=== PATIENT | female | born 1955 | race Caucasian/White ===

== ENCOUNTER 2022-11-16 07:47 | Outpatient (CLI) | payer MEDICARE, SELFPAY | END 2022-11-16 07:48 | disposition home or self-care (01) | LOC: NFLDREF 11-17 14:29 | PROVIDERS: PCP Internal Medicine; Referring Provider Internal Medicine; Visit Provider Internal Medicine | DX: M81.0 Age-related osteoporosis without current pathological fracture (principal); E78.5 Hyperlipidemia, unspecified | CPT/HCPCS: 80061; 82306 ==

== ENCOUNTER 2023-02-16 09:54 | Outpatient (CLI) | payer MEDICARE, SELFPAY ==
--- NOTE | 2023-02-16 10:15 | CRLHL7_ITS ---
For Patients: As a result of the Century Cures Act, medical imaging exams and procedure reports are released immediately into your electronic medical record. You may view this report before your referring provider. If you have questions, please contact your health care provider. BILATERAL SCREENING MAMMOGRAM WITH COMPUTER-AIDED DETECTION TECHNIQUE: CC and MLO views were obtained. These mammographic images have been obtained using full-field digital technique. These mammographic images were interpreted with the benefit of computer-aided detection. COMPARISON FILM: 01/06/21, 03/19/19, 12/24/17. FINDINGS: The breasts are heterogeneously dense, which may obscure small masses IMPRESSION: There is no radiographic evidence for malignancy. ASSESSMENT: BI-RADS Category 1: Negative RECOMMENDATION: Routine screening mammogram in 1 year. A lay language report of this examination will be provided to the patient. Adair Bai M.D. Diagnostic Radiologist [email or web address] MOO/Dictated by: Adair Bai MD @ 02/16/2023 12:29:00 PM (Electronically Signed)
== END 2023-02-16 09:55 | disposition home or self-care (01) ==
LOC: MAMMO 09:55
PROVIDERS: PCP Internal Medicine; Visit Provider Internal Medicine
DX: Z12.31 Encounter for screening mammogram for malignant neoplasm of breast (principal); R92.2 Inconclusive mammogram
CPT/HCPCS: 77067

== ENCOUNTER 2023-02-19 07:41 | Outpatient (CLI) | payer MEDICARE, SELFPAY | END 2023-02-19 07:42 | disposition home or self-care (01) | LOC: NFLDREF 02-21 11:12 | PROVIDERS: PCP Internal Medicine; Referring Provider Internal Medicine; Visit Provider Internal Medicine | DX: E78.5 Hyperlipidemia, unspecified (principal) | CPT/HCPCS: 80061 ==

== ENCOUNTER 2023-11-23 09:30 | Outpatient (CLI) | payer MEDICARE, BC, SELFPAY ==
--- OUTSIDE RECORDS SUMMARY | 2023-11-27 14:12 | XMS_ITS | Encounter Summary ---
Author Organization [facility] Address [address], [place] [address] Care Team Providers Care Steam Station Supervisor Name Role Phone Needs Pcp, Assignment Primary Care Provider [phone] Encounter Details Date Type Department Care Team (Late Contact Info) Description 08/27/2023 Notes/Orders [facility] [facility] [address] [facility]. [place], [place] [id number] Needs Pcp, [place], [place] [phone] Social History Tobacco Use Types Packs/Day Years Used Date Smoking Tobacco: Never Smokeless Tobacco: Never Alcohol Use Standard Drinks/Week Comments Never 0 (1 standard drink = 0.6 oz pur e alcohol) AUDIT-C Answer Date Recorded Q1: How often do you have a drink containing alc ohol? Never 02/02/2020 Average Number of Drinks Not on file 020 Frequency of Binge Drinking Not on file 01/04 Sex and Gender Information Value Date Recorded Sex Assigned at Not on file Gender Identity Not on file Sexual Orientation Not on file documented as of this encounter Plan of Treatment Upcoming Encounters Date Type Department Care Team (Late Contact Info) Description 01/10/2024 10:00 AM CDT Appointment [facility] Dental [facility] [address] [place] [address] Carine Canela, [facility] [address] [place] [address] documented as of this encounter Visit Diagnoses Not on filedocumented in this encounter Care Teams Steam Station Supervisor Relationship Specialty Start Date End Date Needs Pcp, [place], [place] [id number] PCP - General 07/28/21 documented as of this encounter
--- OUTSIDE RECORDS SUMMARY | 2023-11-27 14:12 | XMS_ITS | Clinical Summary ---
Author Organization [facility] Address [place], [place] [address] Care Team Providers Care Illuminator Name Role Phone Pcp, No Primary Care Provider Unavailabl e Allergies No known active allergies Medications Medication Sig Dispensed Refills Start Date End Date Status calcium 600 mg capsule Take 1 capsule by mouth 2 times daily with meals. 0 09/27/2010 Active fluticasone, 50 mcg per actuation, nasal (FLONASE) 50 mcg/Actuation nasal spray Inhale 1 [place] into both nostrils once daily. 1 Bottle 0 09/27/2010 Active alendronate (FOSAMAX) 70 mg tablet 02/06/2019 Active Active Problems No known active problems Encounters Date Type Department Care Team Description 11/26/2023 1:00 PM CDT Office Visit [facility] [address] [place] [address] Say Berrios, WOLFGANG Eye Exam (CEE ) 11/26/2023 Travel from Last 3 Months Immunizations Name Administration Dates Next Due AMB Influenza, IIV4 PF (=>6 mos Flulaval,Fluzone Fluarix)(Flu Clinic Only) 03/12/2015 Influenza, IIV4 03/17/2016 Social History Tobacco Use Types Packs/Day Years Used Date Smoking Tobacco: Never Smokeless Tobacco: Never Sex and Gender Information Value Date Recorded Sex Assigned at Not on file Gender Identity Not on file Sexual Orientation Not on file Obstetrics History Last Filed Vital Signs Vital Sign Reading Time Taken Comments Blood Pressure 143/74 05/17/2016 1:51 PM MILK AND CREAM GRADER Pulse 91 04/26/2016 3:15 PM MILK AND CREAM GRADER Temperature - - Respiratory Rate - - Oxygen Saturation - - Inhaled Oxygen Concentration - - Weight - - Height - - Body Mass Index - - Plan of Treatment Health Maintenance Due Date Last Done Comments Tdap 1964 Depression screening for age 12+ 1965 BMI (ht and wt on same day) for age 18+ 12/13/1971 Hepatitis C screening for ag e 18-79 12/13/1971 Tetanus booster 1973 Colonoscopy through age 75 1998 Lipids for age 45-75 1998 Mammogram for age 45-75 1998 Zoster (shingles) series for age 50+ (1 of 2) 12/13/2003 DEXA/DXA scan for age 65+ 2018 Medicare Wellness for age 65+ 2018 Pneumococcal series for age 65+ (1 of 1 - PCV) 2018 COVID-19 vaccine series (2022- season) 2023 03/01/2023, 03/04/2021, 08/20/2020, Additional history exists Influenza for age 65+ 02/03/2024 03/17/2016, 015 Care Teams Illuminator Relationship Specialty Start Date End Date Pcp, No . PCP - General 12/24/14
--- OUTSIDE RECORDS SUMMARY | 2023-11-27 14:12 | XMS_ITS | Clinical Summary ---
Author Organization [facility] Address [address], [place] [address] Care Team Providers Care Associate Professor Of Surgery Name Role Phone Needs Pcp, Assignment Primary Care Provider [phone] Source Comments You are receiving this document as you are listed as the primary care provider,follow-up provider, or the patient has been referred to you for consultation.This is in compliance with the Medicare and[facility] EHR Incentive Program,which states Providers who transition their patient to another setting of careor provider of care or refers their patient to another provider of care shouldprovide summary care record for each transition of care or referral. [facility] Allergies No known active allergies Medications Medication Sig Dispensed Refills Start Date End Date Status fluticasone (FLONASE) 50 MCG/ACT nasal solution Place 2 Sprays into both nostrils daily. Active alendronate (FOSAMAX) 35 MG tablet 06/03/2018 Active Loratadine 10 MG capsule 11/03/2019 Active simvastatin (ZOCOR) 10 MG tablet Take 1 Tablet (10 mg) by mouth daily at bedtime. 02/26/2023 Active alendronate (FOSAMAX) 70 MG tablet 01/13/2021 Active Active Problems No known active problems Encounters Date Type Department Care Team Description 08/27/2023 Notes/Orders [facility] [address] Family [address] [place], [place] [phone] Needs Pcp, Assignment from Last 3 Months Immunizations Name Administration Dates Next Due Influenza IIV4 (Quadrivalent) Fluad, 65+ Yrs ,03/19/2020 Social History Tobacco Use Types Packs/Day Years [...] on file Sexual Orientation Not on file Last Filed Vital Signs Vital Sign Reading Time Taken Comments Blood Pressure 125/78 06/10/2018 9:31 AM DENTAL LABORATORY TECHNICIAN Pulse 80 03/22/2023 1:10 PM CDT Temperature - - Respiratory Rate - - Oxygen Saturation - - Inhaled Oxygen Concentration - - Weight - - Height - - Body Mass Index - - Plan of Treatment Upcoming Encounters Date Type Department Care Team (Late st Contact Info) Description 01/10/2024 10:00 AM CDT Appointment [facility] [place] [address] [place] [address] [facility] [address] [place] [address] Health Maintenance Due Date Last Done Comments Colon Cancer Screening Plan Due 1955 Hep C Screening (Preventive Services) 1955 Medicare Annual Wellness Visit 1955 Mammogram 1955 Cholesterol 1998 Dexa 2018 DTaP/Tdap/Td (1 - Tdap) 12/10/2020 12/09/2020 COVID-19 Vaccine ( season) 2023 03/04/2021, 08/20/2020, 07/30/2020 Influenza (Season Ended) 2024 021, 03/19/2020, 03/19/2019, Additional history exists Pneumococcal 65+ Yrs (3 - PPSV23 or PCV20) 02/07/2024 02/06/2019, 02/13/2018, 02/06/2018 Zoster/Shingles Completed 02/13/2018, 12/13/2017 HepA Aged Out No longer eligi ble based on patient's age to complete this topic HepB Aged Out No longer eligi ble based on patient's age to complete this topic Hib Aged Out No longer eligi ble based on patient's age to complete this topic IPV (Polio) Aged Out No longer eligi ble based on patient's age to complete this topic MCV4 Aged Out No longer eligi ble based on patient's age to complete this topic Care Teams Associate Professor Of Surgery Relationship Specialty Start Date End Date Needs Pcp, [place] [address] PCP - General 07/28/21
== END 2023-11-23 09:31 | disposition home or self-care (01) ==
LOC: NFLDREF 11-27 14:10
PROVIDERS: PCP Internal Medicine; Visit Provider Internal Medicine
DX: E78.5 Hyperlipidemia, unspecified (principal); M81.0 Age-related osteoporosis without current pathological fracture; Z13.1 Encounter for screening for diabetes mellitus
CPT/HCPCS: 80061; 82306; 82947

== ENCOUNTER 2024-02-27 12:41 | Outpatient (CLI) | payer MEDICARE, BC, SELFPAY ==
--- OUTSIDE RECORDS SUMMARY | 2024-02-27 12:44 | XMS_ITS | Encounter Summary ---
Author Organization [facility] Address [address], [place] [address] Care Team Providers Care Vegetable Scullion Name Role Phone Needs Pcp, Assignment Primary Care Provider [phone] Reason for Visit * Reason Comments Dental Hygiene No concerns Encounter Details Date Type Department Care Team (Late st Contact Info) Description 01/10/2024 10:00 AM CDT Office Visit [facility] [place] [address] [place], [place] [phone] Carine Canela, [facility] [address] [place] [id number] Dental Hygiene (No concerns) Social History Tobacco Use Types Packs/Day Years [...] on file documented as of this encounter Last Filed Vital Signs Vital Sign Reading Time Taken Comments Blood Pressure - - Pulse 73 01/10/2024 10:02 AM CDT Temperature - - Respiratory Rate - - Oxygen Saturation - - Inhaled Oxygen Concentration - - Weight - - Height - - Body Mass Index - - documented in this encounter Patient Instructions * Patient Instructions* Carine Canela RDH - 01/10/2024 10:00 AM CDT Your next hygiene recall is due 07/08/2024 YOUR PERSONAL DENTAL RISK REPORT CARIES (TOOTH DECAY) PERIODONTAL (GUM) DISEASE ORAL CANCER LOW mod high low MOD high LOW elevated ^ ^ ^ Risk Level LOW How To Maintain Your Low Risk Instruction from dental professional on brushing, flossing, and use of oral hygiene products. Radiographs to detect decay. Congratulations on your low risk for tooth decay. Making healthy life style choices including brushing twice a day; daily flossing; and healthy dietary choices should help you maintain this low risk.Risk Level MODERATE Risk Factors Intermediate levels of plaque present. How To Reduce Your Risk Return visit with the dental hygienist at 6 month intervals to assess periodontal condition and provide necessary treatment. Risk Level LOW Risk Factors Incidence of oral cancer increases with age. How To Maintain Your Low Risk Congratulations on your low risk for oral cancer. Making healthy life style choices such as not using tobacco and low to moderate alcohol use should help you maintain this low risk. Rue, we look forward to seeing you at your next visit! Thank you for choosing [facility]. documented in this encounter Progress Notes * Carine Canela RDH - 01/10/2024 10:00 AM CDT HYGIENE PROPHY NOTE COLLABORATIVE AGREEMENT: The patient consents to have charting, radiographs, and prophylaxis by [facility] performed with the understanding that this care is not a substitute for an examination by a dentist. These activities were performed under a collaborating agreement with Shawn Ortiz DDS (License #: [id number]) PROCEDURAL PAUSE: Patient identity verified: Yes Treatment plan/site verified with the patient: Yes Instruments/equipment verified: Yes Any medication/allergy contraindications: No PRESENTATION: Plaque: Localized, Light supra-gingival and interproximal Calculus: Localized, Moderate supra-gingival , sub-gingival, interproximal, mandibular anterior, and posterior buccal Stain: None Bleeding: Localized Light Gingival tissue: Normal ACTIVITIES/EDUCATION: Hand scale, Essential selective polishing, Flossed all contacts, and OHI NEXT PLANNED HYGIENE VISIT: Hygiene Prophy with exam 6 month 5 units. Carine Canela RDH 01/10/2024, 10:00 AM --End of Note-- * Varinder Martinez DDS - 01/10/2024 10:00 AM CDT RECALL EXAM NOTE REASON FOR VISIT/CHIEF COMPLAINT: Nadira is a 68 y.o. female who presents for Dental Hygiene CHART REVIEW: Reviewed with patient: Medical history, Dental history, Problem list, Periodontal charting, and Radiographs. SOFT TISSUE, HEAD AND NECK EXAMINATION: Lips: normal Tongue: normal Palate: normal Throat: normal Floor of the mouth: normal Mucosa: normal Head and neck: normal TMD EVALUATION: Palpation Pain: None Joint Sounds: None Pain with Range of Motion: None OCCLUSAL EXAMINATION: Unchanged COSMETIC CONCERNS: Patient's Perception: Acceptable Dentist's Perception: Acceptable TREATMENT REVIEW AND FOLLOW-UP: Discussed the Dental findings, Prognosis, and Treatment options with the patient. All questions answered and informed consent was obtained. Planned Recall Interval: Examination: 6 months Recall prophy: 6 months NTI, AQA. Next Planned Visit: Recall Varinder Martinez DDS 01/10/2024, 10:35 AM --End of Note-- documented in this encounter Plan of Treatment Upcoming Encounters Date Type Department Care Team (Late st Contact Info) Description 09/01/2024 8:10 AM CDT Appointment [facility] [address] [address] Yoly Lucero RDH [address] [place] [address] Scheduled Orders Name Type Priority Associated Diagnoses Order Schedule PROPHYLAXIS-ADULT RECALL Dental Procedures Routine 1 Occurrences starting 01/10/2024 PERIODIC ORAL EVALUATION Dental Procedures Routine 1 Occurrences starting 01/10/2024 [id number] Dental Procedures Routine 1 Occurrences starting 01/10/2024 TOPICAL FLUORIDE VARNISH Dental Procedures Routine 1 Occurrences starting 01/10/2024 documented as of this encounter Procedures Procedure Name Priority Date/Time Associated Diagnosis Comments [id number] Routine 01/10/2024 10 :00 AM CDT Routine health maintenance PERIODIC ORAL EVALUATION Routine 01/10/2024 10:00 AM CDT Routine health maintenance PROPHYLAXIS-ADULT RECALL Routine 01/10/2024 10:00 AM CDT Routine health maintenance documented in this encounter Visit Diagnoses Diagnosis Incomplete fracture of tooth- Primary Routine health maintenance Routine general medical examination at a health care facility documented in this encounter Care Teams Vegetable Scullion Relationship Specialty Start Date End Date Needs Pcp, [place] [address] PCP - General 07/28/21 documented as of this encounter
--- OUTSIDE RECORDS SUMMARY | 2024-02-27 12:44 | XMS_ITS | Clinical Summary ---
Author Organization [facility] Address [address] [place] [address] Care Team Providers Care Box Car Washer Name Role Phone Needs Pcp, Assignment Primary Care Provider [phone] Source Comments You are receiving this document as you are listed as the primary care provider,follow-up provider, or the patient has been referred to you for consultation.This is in compliance with the Medicare and[facility] EHR Incentive Program,which states Providers who transition their patient to another setting of careor provider of care or refers their patient to another provider of care shouldprovide summary care record for each transition of care or referral. [facility] Allergies No known active allergies Medications Medication [...] 70 MG tablet 01/13/2021 Active Active Problems Problem Noted Date Diagnosed Date High cholesterol 11/16/2022 Osteoporosis 12/24/2017 Encounters Date Type Department Care Team Description 01/10/2024 10:00 AM CDT Office Visit [facility] [place] [address] [place] [address] Carine Canela, [facility] Dental Hygiene (No concerns) from Last 3 Months Immunizations Name Administration [...] Comments Blood Pressure 125/78 06/10/2018 9:31 AM FRONT WORKER Pulse 73 01/10/2024 10:02 AM CDT Temperature - - Respiratory Rate - - Oxygen Saturation - - Inhaled Oxygen Concentration - - Weight - - Height - - Body Mass Index - - Plan of Treatment Upcoming Encounters Date Type Department Care Team (Late st Contact Info) Description 09/01/2024 8:10 AM CDT Appointment [facility] [place] [address] [place] [address] Yoly Lucero, [facility] [address] [phone] Health Maintenance Due Date Last Done Comments Colon Cancer Screening Plan Due 1955 Hep C Screening (Preventive Services) 1955 Medicare Annual Wellness Visit 1955 Mammogram 1955 Cholesterol 1998 Dexa 2018 DTaP/Tdap/Td (1 - Tdap) 12/10/2020 12/09/2020 COVID-19 Vaccine ( season) 2024 03/04/2021, 08/20/2020, 07/30/2020 Influenza (#1) 2024 03/18/2021, 03/04, 03/19/2019, Additional history exists Pneumococcal 65+ Yrs (3 - PPSV23 or PCV20) 02/07/2024 02/06/2019, 02/13/2018, 02/06/2018 RSV (1 - 1-dose 75+ series) 2028 Zoster/Shingles Completed 02/13/2018, 12/13/2017 HepA Aged Out [...] on patient's age to complete this topic Procedures Procedure Name Priority Date/Time Associated Diagnosis Comments [id number] Routine 01/10/2024 10 :00 AM CDT Routine health maintenance PERIODIC ORAL EVALUATION Routine 01/10/2024 10:00 AM CDT Routine health maintenance PROPHYLAXIS-ADULT RECALL Routine 01/10/2024 10:00 AM CDT Routine health maintenance from Last 3 Months Care Teams Box Car Washer Relationship Specialty Start Date End Date Needs Pcp, [place] [address] PCP - General 07/28/21
--- OUTSIDE RECORDS SUMMARY | 2024-02-27 12:44 | XMS_ITS | Clinical Summary ---
Author Organization [facility] Address [place], [place] [address] Care Team Providers Care Wired Music Operator Name Role Phone Pcp, No Primary Care Provider Unavailabl e Allergies No known active allergies Medications Medication Sig Dispensed Refills Start Date End Date Status calcium 600 mg capsule Take 1 capsule by mouth 2 times daily with meals. 0 09/27/2010 Active fluticasone, 50 mcg per actuation, nasal (FLONASE) 50 mcg/Actuation nasal spray Inhale 1 [place] into both nostrils once daily. 1 Bottle 0 09/27/2010 Active alendronate (FOSAMAX) 70 mg tablet 02/06/2019 Active Active Problems No known active problems Immunizations Name Administration Dates Next Due AMB [...] Comments Blood Pressure 143/74 05/17/2016 1:51 PM RECEPTIONIST DOCTOR'S OFFICE Pulse 91 04/26/2016 3:15 PM RECEPTIONIST DOCTOR'S OFFICE Temperature - - Respiratory Rate - - [...] 1 - PCV) 2018 COVID-19 vaccine series (5 - 2022-24 season) 2024 03/01/2023, 03/04/2021, 08/20/2020, Additional history exists Influenza for age 65+ 02/03/2024 03/17/2016, 015 Care Teams Wired Music Operator Relationship Specialty Start Date End Date Pcp, No . PCP - General 12/24/14
--- NOTE | 2024-02-27 13:00 | CRLHL7_ITS ---
For Patients: As a result of the Century Cures Act, medical imaging exams and procedure reports are released immediately into your electronic medical record. You may view this report before your referring provider. If you have questions, please contact your health care provider. BILATERAL SCREENING MAMMOGRAM WITH COMPUTER-AIDED DETECTION AND TOMOSYNTHESIS TECHNIQUE: CC and MLO views were obtained. These mammographic images have been obtained using full-field digital technique. These mammographic images were interpreted with the benefit of computer-aided detection. Breast Tomosynthesis was used in this interpretation. COMPARISON FILM: 02/16/23, 01/06/21, 03/19/19. FINDINGS: There are scattered areas of fibroglandular density IMPRESSION: There is no radiographic evidence for malignancy. ASSESSMENT: BI-RADS Category 1: Negative RECOMMENDATION: Routine screening mammogram in 1 year. A lay language report of this examination will be provided to the patient. Adair Bai M.D. Diagnostic Radiologist [email or web address] MOO/Dictated by: Adair Bai MD @ 03/06/2024 12:30:00 PM (Electronically Signed)
--- NOTE | 2024-02-27 13:30 | CRLHL7_ITS ---
For Patients: As a result of the Cures Act, medical imaging exams and procedure reports are released immediately into your electronic medical record. You may view this report before your referring provider. If you have questions, please contact your health care provider. DXA BONE MINERAL DENSITY STUDY 02/27/2024 Current height (in): 63.0. Weight (lb): 115.0. Menopause age: 46. Ethnicity: White. Reason for exam: Age-related osteoporosis. 1. Have you had a previous hip or vertebral fracture? No. 2. Have you had any fractures during your adult life which did not result from significant trauma (e.g., auto accident)? No. 3. Did either of your parents have a hip fracture? No. 4. Do you smoke? No. 5. Have you ever taken Glucocorticoids? No. 6. Do you have rheumatoid arthritis? No. 7. Do you have secondary osteoporosis? No. 8. Do you drink 3 or more alcoholic drinks per day? No. 9. Are you being treated for osteoporosis? Yes. 10. Have you ever taken any of the following medications: Actonel, Evista, Fosamax, Miacalcin, Reclast, Boniva, Forteo, HRT (i.e. estrogen/hormone therapy), Protelos, Prolia, Vitamin D, Calcium, other ??? please specify. ANSWER: Yes, Fosamax, vitamin D, calcium. 11. Do you have any of the following medical conditions: Anorexia or bulimia, asthma or emphysema, end stage renal disease, hyperparathyroidism, any seizure disorders, cancer, inflammatory bowel diseases, hysterectomy, other ??? please specify. ANSWER: No. 12. What was your maximum height (inches)? 63. 13. Do you perform weight bearing exercise regularly? Yes. 14. Do you regularly consume dairy products? Yes. 15. Do you drink caffeinated beverages? No. 16. At what age did your period start? 10. 17. Are you premenopausal? No. 18. How many full-term pregnancies have you had? 1. 19. Have you ever missed your period for more than 6 months in a row (not including or menopause)? No. TECHNIQUE: Bone mineral density study was performed using the [employer]. FINDINGS: The results of the study expressed as bone mineral density (BMD) are as follows: Lumbar spine L1 to L4: BMD: 0.995 g/cm2. T-score: -0.5. Z-score: 1.6 Neck Left: BMD: 0.578 g/cm2. T-score: -2.4. Z-score: -0.6 Right: BMD: 0.604 g/cm2. T-score: -2.2. Z-score: -0.4 Total Left: BMD: 0.799 g/cm2. T-score: -1.2. Z-score: 0.3 Right: BMD: 0.881 g/cm2. T-score: -0.5. Z-score: 1.0 IMPRESSION: Osteopenia. *Comparison exams done prior to 11/2019 were performed on different unit, [place]. COMPARISON: Compared with scan of 01/06/2021, the bone mineral density has increased by 1.2 percent at the spine and increased by 1.7 percent at the hip. Eris Montana M.D. Body/Diagnostic Radiologist [email or web address] Transcribed: 11:40 am DW/Dictated by: Eris [place] MD @ 02/28/2024 10:51:00 AM (Electronically Signed)
== END 2024-02-27 12:42 | disposition home or self-care (01) ==
LOC: MAMMO 12:42
PROVIDERS: PCP Internal Medicine; Visit Provider Internal Medicine
DX: Z12.31 Encounter for screening mammogram for malignant neoplasm of breast (principal); M81.0 Age-related osteoporosis without current pathological fracture; M85.89 Other specified disorders of bone density and structure, multiple sites
CPT/HCPCS: 77063; 77067; 77080

== ENCOUNTER 2024-12-02 08:19 | Outpatient (CLI) | payer MEDICARE, BC, SELFPAY | END 2024-12-02 08:20 | disposition home or self-care (01) | PROVIDERS: PCP Internal Medicine; Referring Provider Internal Medicine; Visit Provider Internal Medicine | DX: E78.5 Hyperlipidemia, unspecified (principal); M81.0 Age-related osteoporosis without current pathological fracture; Z13.1 Encounter for screening for diabetes mellitus | CPT/HCPCS: 80061; 82306; 82947 ==

== ENCOUNTER 2025-04-23 15:23 | Outpatient (CLI) | payer MEDICARE, BC, SELFPAY ==
--- NOTE | 2025-04-23 15:40 | CRLHL7_ITS ---
For Patients: As a result of the Century Cures Act, medical imaging exams and procedure reports are released immediately into your electronic medical record. You may view this report before your referring provider. If you have questions, please contact your health care provider. INDICATION: BILATERAL SCREENING MAMMOGRAM, ASYMPTTOMATIC 69 Y/O FEMALE COMPARISON: 02/27/2024, 02/16/2023, 01/06/2021 TECHNIQUE: Digital mammogram in CC and MLO projections including computer-aided detection (CAD) and tomosynthesis. BREAST COMPOSITION: The breasts are heterogeneously dense, which may obscure small masses. FINDINGS: No suspicious findings. ASSESSMENT: BI-RADS 2 Benign RECOMMENDATION: Annual screening mammogram. A lay language report of this examination will be provided to the patient. Dictated by: Adair Bai MD @ 04/24/2025 09:16:11 (Electronically Signed)
== END 2025-04-23 15:24 | disposition home or self-care (01) ==
LOC: MAMMO 15:24
PROVIDERS: PCP Internal Medicine; Visit Provider Internal Medicine
DX: Z12.31 Encounter for screening mammogram for malignant neoplasm of breast (principal); R92.333 Mammographic heterogeneous density, bilateral breasts
CPT/HCPCS: 77063; 77067